=== PATIENT | male | born 1955 ===

== ENCOUNTER 2018-09-09 07:29 | Day surgery (SDC) | payer BC ==
[2018-09-05 07:49] VITALS: BMI 28.8
[2018-09-09] MEDS ORDERED: Propofol 10 mg/ml Inj (20 ML) ONE (11:43)
[2018-09-09] MEDS ORDERED: Midazolam 2 MG/2 ML VIAL ONE (11:43)
[2018-09-09] MEDS ORDERED: Rocuronium 10 mg/ml (5 ml) ONE (11:55)
[2018-09-09] MEDS ORDERED: Succinylcholine Chloride 20 mg/ml Syr (5 ml) IV ONE (11:55)
[2018-09-09] MEDS: ceFAZolin IV 1 gm in Dextrose 2 GM/100 ML BAG IVPB ONE ×2 (13:06→13:09)
[2018-09-09] MEDS ORDERED: Phenylephrine 10 mg/ml Inj ONE (13:25)
[2018-09-09] MEDS ORDERED: ePHEDrine 50 mg/ml Inj ONE (13:51)
[2018-09-09] MEDS ORDERED: EPINEPHrine 1:1000 Nasal Sol(30mL) ONE (16:07)
[2018-09-09] MEDS ORDERED: ceFAZolin IV 1 gm in Dextrose 2 GM/100 ML BAG IVPB ONE (17:34)
[2018-09-09] MEDS ORDERED: Neostigmine Methylsulfate 3mg/3ml Syringe IV ONE ×2 (17:35)
[2018-09-09] MEDS ORDERED: Oxycodone/Acetaminophen 5/325 mg Tab PO PRN (18:03)
[2018-09-09] MEDS: HYDROmorphone 0.5 mg/0.5 ml ISec IVP PRN ×3 (18:13→18:35)
[2018-09-09] MEDS ORDERED: HYDROmorphone 0.5 mg/0.5 ml ISec ONE (18:15)
--- NOTE | 2018-09-09 20:14 | PCM.ANESB1 ---
Interscalene Block - Brachial Plexus Date of Procedure: 09/09/18 Procedure Performed: Interscalene Block of Brachial Plexus Left - Procedure Interscalene Block of Brachial Plexus: This procedure was explained to the patient that it is for post-operative pain management. Consent was obtained after a thorough discussion with the patient regarding the benefits and possible complications of local anesthetic block of the Brachial Plexus at the Interscalene area. The patient was brought to the Operating Room and standard monitors were applied. Time out was held with the circulating nurse to confirm the correct surgery and appropriate block. After applying Oxygen by nasal cannula and administering IV Sedation, the patient's head was gently rotated away from the LEFT operative shoulder and the anterior scalene groove was carefully palpated. The ultrasound transducer was then applied to the skin in the transverse plane and the brachial plexus was visualized lateral to the carotid artery and in between the anterior and middle scalene muscles. After identification,the anterior lateral portion of the neck was prepped with Betadine solution three times and Lidocaine 1% was injected subcutaneously for topical analgesia. At this point, a # 22 gauge Stimuplex 2 inches insulated needle was inserted into the interscalene groove and directed in a caudal and midline direction. The needle was inserted lateral to the ultrasound transducer in-plane towards the brachial plexus in a [id number] direction. Needle advancement was performed carefully under direct ultrasound visualization. Nerve stimulator was used and twitched of the affected extremity including the hand brachialis muscles, biceps and the deltoid was obtained at a current of 0.5MA. After repeated negative aspiration,___5__cc of_0.25% bupivicaine were injected and this was followed with _15__cc of_0.25% bupivicaine . Under ultrasound guidance the local anesthetics were observed surrounding the roots of the brachial plexus. The needle was removed intact and sterile dressing was applied. The patient had stable vital signs, was conscious and in no apparent distress. The patient tolerated the interscalene block of the bracheal plexus well with no complaints, paresthesias, or pain.
[2018-09-09 22:14] VITALS: BP 141/84; PULSE 113; RESP 16; TEMP 97.6; O2SAT 94
--- NOTE | 2018-09-10 02:00 | PCM.SURG1 ---
Surgeon's Initial Post Op Note - Surgeon's Notes Surgeon: Maria Esther Zhou MD Capacitor Inspector: Joseline Pineda PA-C Type of Anesthesia: General Endo, Block Regional Pre-Operative Diagnosis: Left shoulder: #1 Large complete rotator cuff tear. #2 subacromial impingement. #3 subacromial bursitis. #4 biceps tendonitis. #5 SLAP tear Operative Findings: Left shoulder: #1 Large complete rotator cuff tear (large retracted complete tear supraspinatus w/ significant tendonopathy). #2 subacromial impingement. #3 subacromial bursitis. #4 biceps tendonitis w/ partial tear throughout intra-articular course. #5 anterior instability/ bankart labral tear/ anterior capsule attenuation. 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 #5 SLAP tear Post-Operative Diagnosis: Left shoulder: #1 Large complete rotator cuff tear (large retracted complete tear supraspinatus w/ significant tendonopathy). #2 subacromial impingement. #3 subacromial bursitis. #4 biceps tendonitis w/ part ial tear throughout intra-articular course. #5 anterior instability/ bankart labral tear/ anterior capsule attenuation. 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 #2 anterior stabilization/ Bankart repair/ capsulorrhaphy. #3 SLAP tear repair. #4 chondroplasty glenoid. #5 extensive debridement. #6 synovectomy throughout entire glenojumeral joint. #7 subacromial decompression w/ acromioplasty. #8 biceps tenodesis. #9 intra-articular PRP injection Specimen/Specimens Removed: specimen= none. complications= none. Implants= Arthrex: #1 SLAP repair- 3x 2.9 mm biocomposite Pushlock anchors and labral tape. #2 Bankart repair/ anterior stabilization/ capsulorrhaphy - 3x 2.9 mm biocomposite Pushlock anchorss and labral tape. #3 RTC tear- 2x 5.5 mm biocomposite Swivel Lock anchors (medial row), 1x 6.25 mm biocomposite Swivel Lock anchors (anterior/lateral row), 1x 5.5mm biocomposite Swivel Lock anchor (posterior/lateral row, and Fibertape suture. #4 biceps tenodesis - #2 fibertape suture/fixation Estimated Blood Loss: EBL {In ML}: 10 Blood Products Given: N/A Drains Used: No Drains Post-Op Condition: Good Date of Surgery/Procedure: 09/09/18 Time of Surgery/Procedure: 17:00
--- NOTE | 2018-10-05 14:00 | OP ---
PROCEDURE DATE: 09/09/2018 PREOPERATIVE DIAGNOSES: Left shoulder: 1. Large complete rotator cuff tear. 2. Subacromial impingement. 3. Subacromial bursitis. 4. Biceps tendinitis. 5. Superior and posterior labral tear. POSTOPERATIVE DIAGNOSES: Left shoulder: 1. Large complete rotator cuff tear (large retracted complete supraspinatus tear with significant tendinopathy). 2. Subacromial impingement. 3. Subacromial bursitis. 4. Biceps tendinitis with partial tear throughout its intraarticular course. 5. Anterior instability/Bankart labral tear/anterior capsule attenuation. 6. 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 7. Unstable type 2 superior and posterior labral tear from 8 o'clock to 1 o'clock on the glenoid face. 8. Significant synovitis throughout the shoulder joint, anterior, inferior, superior, and posterior.. PROCEDURES: Left shoulder arthroscopic: 1. Rotator cuff repair. 2. Anterior stabilization/Bankart repair/capsulorrhaphy. 3. SLAP tear repair. 4. Chondroplasty of glenoid. 5. Extensive debridement. 6. Synovectomy throughout entire glenohumeral joint. 7. Subacromial decompression with acromioplasty. 8. Biceps tenodeses. 9. Intraarticular PRP injection. SURGEON: Maria Esther Zhou MD. SHIFT LAB TECHNICIAN: Joseline Pineda PA-C. JUSTIFICATION OF SHIFT LAB TECHNICIAN: Joseline Pineda is a certified physician event sales assistant whose skilled surgical services were an absolute necessity for successful completion of the procedure as he provided skilled surgical assistance with positioning of the patient, positioning of the extremity, management of surgical greenberg, retraction of neurovascular structures, passage of suture and placement of anchors for SLAP repair, Bankart repair, rotator cuff repair, biceps tenodeses, wound closure, fitting and placement of shoulder immobilizer sling. Joseline Pineda was essential for successful completion of the procedure and was present for the entire case. SPECIMEN: None. ESTIMATED BLOOD LOSS: 10 mL. COMPLICATIONS: None. DRAINS: None. IMPLANTS: Arthrex: 1. Three 2.9 mm BioComposite PushLock anchors and labral tape for SLAP repair. 2. Three 2.9 mm BioComposite PushLock anchors and labral tape for Bankart repair/anterior stabilization/capsulorrhaphy. 3. Rotator cuff repair = Two 5.5 mm BioComposite SwiveLock anchors for medial row, one 6.25 mm BioComposite SwiveLock anchor for the anterior anchor of the lateral row, one 5.5 mm BioComposite SwiveLock anchors for the posterior anchor of the lateral row and associated FiberTape suture. 4. Biceps tenodeses by #2 FiberTape suture. DISPOSITION: The patient was extubated and transferred to PACU in stable condition and tolerated the procedure well. INDICATIONS FOR SURGERY: The patient is 62-year-old man who is right-hand dominant with a past medical history significant for diabetes, hypertension, asthma, psoriasis who presented to the office under my care over the past year with significant left shoulder pain and right shoulder pain with the left being much worse than the right. He underwent multiple cortisone injections under my care over the past year, four in total, with each round of cortisone mixture injections administered as two separate injections localized to the bicipital groove and the subacromial space. After each round of injections, he stated that he had near complete resolution of pain and jain of function that would last him approximately 4 weeks. He was compliant with physical therapy and antiinflammatory medication and antiinflammatory cream use. Despite best efforts with conservative treatment and his good compliance with the recommendations, he still has failed conservative treatment and had significant negative impact on his quality of life with severe left shoulder pain and dysfunction after the injections would wear off. When the injections wear off and his baseline pain returned, he refused to go to physical therapy because it was causing him too much pain to move his shoulder. MRI of the left shoulder done at [facility] on 12/10/2017 was read as: 1. Moderate rotator cuff tendinosis/strain and subacromial, subdeltoid bursitis. 2. Full thickness tear of distal supraspinatus measuring 34 x 21 mm. 3. SLAP tear. 4. Mild changes acromioclavicular with spurring and subacromial spur/impingement. After failing conservative treatments under my care, the patient was referred to his primary care physician for PAT and preoperative medical clearance. He was indicated for surgery in the form of left shoulder arthroscopic rotator cuff repair, subacromial decompression with acromioplasty, SLAP repair, extensive debridement and all other indicated arthroscopic procedures as well as biceps tenodeses. The risks, benefits, and alternatives to the procedure were discussed at length with the patient and his family along with the risks including, but not limited to infection, neurovascular damage, failure of surgery, failure of repair, failure of implant, need for further surgery, iatrogenic injury and fracture, inability to return to presurgery and injury level of activity, loss of function, loss of limb, loss of occupation, development of blood clots including DVT and PE, anesthesia reactions including . After answering all of his questions, he stated that he understood the risks and wished to proceed with the surgery. He watched surgical animation videos and diagnosis animation videos at multiple office visits and he stated that he had good understanding of the procedures as well as the different diagnoses. I reviewed at length with him the postop rehabilitation protocol, and he stated that he understood the need for compliance with the rehab protocol in order to maximize the chance of him having a successful outcome after surgery. Again, he was referred to his primary care physician for preadmission testing and preoperative medical evaluation and clearance, and the procedure was scheduled at [facility] on 09/09/2018. DESCRIPTION OF PROCEDURE: Details to come. I will complete the operative report once it is in the system. Maria Esther Zhou MD
== END 2018-09-09 21:00 | disposition home or self-care (01) ==
LOC: C.SDS 07:29
PROVIDERS: ATTEND Student in an Organized Health Care Education/Training Program
DX: S46.812A Strain of other muscles, fascia and tendons at shoulder and upper arm level, left arm, initial encounter (principal); M75.42 Impingement syndrome of left shoulder; S43.432A Superior glenoid labrum lesion of left shoulder, initial encounter; M75.22 Bicipital tendinitis, left shoulder; M75.52 Bursitis of left shoulder
CPT/HCPCS: 29807; 29821; 29826; 29827; 82948; C1713; J0171; J0690; J1170; J2001; J2250; J2370; J2704; J2710; J3010